=== PATIENT | male | born 1995 | race Caucasian/White ===

== ENCOUNTER 2017-03-19 19:48 | Emergency (ER) | payer OTHER ==
[~2017-03-19] VITALS: Ht 175.3 cm; Wt 108.7 kg
[~2017-03-19 19:48] MED LIST: ALBU8.5H3 INH; ALPR2TAB2 PO; PRED10TA14 PO; TRAZ100T15 PO
[2017-03-19] MEDS ORDERED: ALBUTEROL/IPRATROPIUM 2.5MG/0.5MG, 3 ML NPPB ONE ×3 (20:30→22:00)
[2017-03-19] MEDS ORDERED: ALBUTEROL/IPRATROPIUM 2.5MG/0.5MG, 3 ML ONE ×3 (20:32→22:10)
[2017-03-19] MEDS ORDERED: IBUPROFEN 200 MG TABLET ONE (21:53)
[2017-03-19] MEDS ORDERED: IBUPROFEN 200 MG TABLET PO ONE (22:00)
[2017-03-19 22:23] VITALS: BP 111/71
== END 2017-03-19 23:42 | disposition home or self-care (01) ==
LOC: ED 21:04
DX: J45.901 Unspecified asthma with (acute) exacerbation (principal)
CPT/HCPCS: 71020; 93005; 94640; 99284; J7512; J7620

== ENCOUNTER 2017-03-31 18:50 | Emergency (ER) | payer OTHER ==
[~2017-03-31] VITALS: Ht 175.3 cm; Wt 112.9 kg
[2017-03-31] MEDS ORDERED: MONT4GRA PO (19:18)
[2017-03-31] MEDS ORDERED: ALBU0.63 NEB (19:18)
[2017-03-31] MEDS ORDERED: AMPH30TA2 PO (19:18)
[2017-03-31] MEDS ORDERED: FLUT1DIS IH (19:18)
[2017-03-31] MEDS ORDERED: ALBUTEROL/IPRATROPIUM 2.5MG/0.5MG, 3 ML ONE ×2 (19:35→20:56)
[2017-03-31] MEDS: ALBUTEROL/IPRATROPIUM 2.5MG/0.5MG, 3 ML NPPB SCH ×2 (19:46→20:59)
[2017-03-31] MEDS ORDERED: DEXAMETHASONE 4 MG/ML, 1ML IM SCH (22:00)
[2017-03-31 22:27] VITALS: BP 125/76
== END 2017-03-31 22:29 | disposition home or self-care (01) ==
LOC: ED 21:50
DX: J45.41 Moderate persistent asthma with (acute) exacerbation (principal); F90.9 Attention-deficit hyperactivity disorder, unspecified type; Z88.0 Allergy status to penicillin; Z88.1 Allergy status to other antibiotic agents
CPT/HCPCS: 94640; 99283; J7620